=== PATIENT | female | born 1975 | race Caucasian/White ===

== ENCOUNTER 2017-02-06 15:03 | Emergency (ER) | payer OTHER | END 2017-02-06 18:01 | disposition home or self-care (01) | LOC: FER 15:03 | DX: S16.1XXA Strain of muscle, fascia and tendon at neck level, initial encounter (principal); S00.93XA Contusion of unspecified part of head, initial encounter; V49.40XA Driver injured in collision with unspecified motor vehicles in traffic accident, initial encounter; Y92.410 Unspecified street and highway as the place of occurrence of the external cause | CPT/HCPCS: 70450; 70486; 72125 ==

== ENCOUNTER 2021-05-16 15:18 | Emergency (ER) | payer OTHER ==
[~2021-05-16 15:18] MED LIST: K-DUR20 MEQ PO
[2021-05-16 20:29] LABS: BASOPHIL 0.9 % (0-2); EOSINOPHIL 3.8 % (0-5); HCT 37.1 % (37.0-47.0); HGB 12.5 g/dl (12.5-16.0); LYMPHOCYTE 32.4 % (15-48); MCH 37.5 pg (25.0-31.0); MCHC 33.7 g/dL (32.0-36.0); MCV 111.4 fL (78.0-100.0); MONOCYTE 9.5 % (0-12); MPV 8.9 fL (6.0-9.5); NEUTROPHIL 53.2 % (41-80); NRBC 0; PLT 302 K/uL (150-400); RBC 3.33 M/uL (4.20-5.40); WBC 8.2 K/uL (4.0-10.5)
[2021-05-16 21:04] LABS: ALBUMIN 3.4 g/dL (3.4-5.0); BILIRUBIN - TOTAL 0.4 mg/dL (0.2-1.0); BUN/CREAT RATIO (CALC) 9.7 RATIO; CREATININE 0.62 mg/dL (0.51-0.95); GLOBULIN (CALCULATION) 3.5 g/dL; POTASSIUM 3.9 mmol/L (3.5-5.1); TOTAL PROTEIN 6.9 g/dL (6.4-8.2)
== END 2021-05-16 23:51 | disposition home or self-care (01) ==
LOC: FER 15:18
PROVIDERS: Internal Medicine
DX: R59.0 Localized enlarged lymph nodes (principal); F17.210 Nicotine dependence, cigarettes, uncomplicated
CPT/HCPCS: 36415; 70491; 71260; 80053; 85025; J1100; Q9967